=== PATIENT | male | born 2000 | race Caucasian/White ===

== ENCOUNTER 2019-08-24 14:19 | Emergency (ER) | payer OTHER ==
[~2019-08-24] VITALS: Ht 180.3 cm; Wt 61.1 kg
--- NOTE | 2019-08-24 14:28 | NUR ---
CONTRACT ASSISTANT: PT PLACED IN C-COLLAR. NEURO INTACT AT THIS TIME. EYES PERRLA 3 MM. AOX4 AT THIS TIME.
--- NOTE | 2019-08-24 14:37 | NUR ---
PT TO ROOM FROM TRIAGE VIA WHEELCHAIR. ON GURNEY, C-COLLAR IN PLACE, VSS. DR RUSH AT BEDSIDE. POC, ASSESSMENT REVIEWED AND QUESTIONS ANSWERED. PT VEBALIZES UNDERSTANDING THAT C-COLLAR WILL REMAIN IN PLACE AND HE WILL REMAIN IN SUPINE POSITION UNTIL CLEARED BY XRAY. CALL LIGHT W/I REACH, VSS
--- NOTE | 2019-08-24 15:53 | NUR ---
HEAD CT AND CERVICAL CT COMPLETED AND RESULTED. NO ABNORMALITY PER RPT. C-COLLAR REMOVED AND HOB 35DEGREES.
[2019-08-24] MEDS ORDERED: LIDOCAINE-MPF 1%, 5ML ONE (16:28)
[2019-08-24] MEDS ORDERED: LIDOCAINE 1%, 10ML INFIL ONE (16:30)
[2019-08-24 16:32] VITALS: BP 111/64
--- NOTE | 2019-08-24 17:09 | NUR ---
Patient/Caregiver given discharge instructions and they have confirmed that they understand the instructions. Patient ambulatory with steady gait.
== END 2019-08-24 17:11 | disposition home or self-care (01) ==
LOC: ED 17:00
DX: S06.0X9A Concussion with loss of consciousness of unspecified duration, initial encounter (principal); S01.01XA Laceration without foreign body of scalp, initial encounter; R41.3 Other amnesia; R41.0 Disorientation, unspecified; R11.2 Nausea with vomiting, unspecified; W19.XXXA Unspecified fall, initial encounter; Y93.89 Activity, other specified; Y92.488 Other paved roadways as the place of occurrence of the external cause; Y99.8 Other external cause status
CPT/HCPCS: 12001; 70450; 72125; 99285; J3490